=== PATIENT | male | born 1940 ===

== ENCOUNTER 2016-09-12 07:52 | Day surgery (SDC) | payer BC, MEDICARE ==
[2016-02-09 08:55] VITALS: BMI 27.4
[2016-09-12] MEDS ORDERED: Gentamicin 160 MG in Sodium Chloride 0.9% 100 ML IVPB ONE (08:01)
[2016-09-12] MEDS ORDERED: Propofol 10 mg/ml Inj (20 ML) ONE (08:19)
[2016-09-12] MEDS ORDERED: Vancomycin 1 gm/D5W 200 ml 1 GM/200 ML BAG IVPB ONE (08:39)
[2016-09-12] MEDS ORDERED: Lactated Ringer's 1,000 ML IV ONE ×2 (08:45→12:20)
[2016-09-12] MEDS ORDERED: Midazolam 2 MG/2 ML VIAL ONE (08:50)
[2016-09-12] MEDS ORDERED: ePHEDrine 50 mg/ml Inj ONE (09:15)
[2016-09-12] MEDS ORDERED: Phenylephrine 10 mg/ml Inj ONE (09:20)
[2016-09-12] MEDS ORDERED: Bacitracin 500 Units/gm Oint Foilpak UD ONE (09:43)
[2016-09-12] MEDS ORDERED: HYDROmorphone 0.5 mg/0.5 ml ISec IVP PRN (11:36)
[2016-09-12] MEDS ORDERED: Lactated Ringer's 1,000 ML IV SCH (11:45)
[2016-09-12 12:45] LABS: RBC URINE 2 /hpf (0-3); URINE BILIRUBIN NEGATIVE (NEGATIVE); URINE BLOOD NEGATIVE (NEGATIVE); URINE CALCIUM OXALATE CRYSTALS OCC /hpf (<OCC); URINE COLOR Yellow (YELLOW); URINE GLUCOSE (UA) NORMAL (Normal); URINE KETONE NEGATIVE (NEGATIVE); URINE LEUKOCYTE ESTERASE TRACE Leu/uL (Negative); URINE PROTEIN 1+ mg/dL (NEGATIVE); URINE UROBILINOGEN NORMAL mg/dL (0.2-1.0); WBC URINE 4 /hpf (0-5)
[2016-09-12 13:34] VITALS: RESP 13; TEMP 97.2
[2016-09-12 14:53] VITALS: O2SAT 98
[2016-09-12 14:55] VITALS: BP 122/67; PULSE 63
--- NOTE | 2016-09-14 03:01 | OP ---
PROCEDURE DATE: 09/12/2016 PREOPERATIVE DIAGNOSES: Organic erectile dysfunction. Penile prosthesis malfunction. POSTOPERATIVE DIAGNOSES: Organic erectile dysfunction. Penile prosthesis malfunction. PROCEDURE: Removal of inflatable penile prosthesis. Insertion of semirigid penile prosthesis. OPERATING SURGEON: Dr. Maritza Elliott. PROCEDURE FOLLOWS: The patient received perioperative antibiotics. The patient was in the supine position. The abdomen, genitalia, perineum and thighs were prepped and draped in a sterile fashion. A meticulous 10-minute Betadine scrub was performed to the operative site. ChloraPrep skin prep was used. The abdomen and genitalia prepped and draped in sterile fashion. PROCEDURE: A 14-Tanzanian Sanchez catheter was inserted into the bladder. Urine was sent for bacteriolog ic examination. The double ring retractor was used. The skin hooks were used as well. The penis was placed in traction in a cephalad direction using the skin hook at the urethral meatus. A transverse incision approximately 4-5 cm was made at the level of the penoscrotal junction. Incisi on was extended through the skin and subcutaneous tissue. The pump within the scrotum was dissected free by sharp dissection with electrocautery. The pump was then delivered. The pump was noted to be deflated and, upon pumping of the device, it remained deflated. Further pumping, however, revealed pump to stop working. The prosthesis filled well. The prosthesis deflated well. The pump was placed in a new position, dependent position within the scrotum. However, testing of th e pump was again performed and the pump did not function well. The pump was delivered its new pouch. The pump was again tested and did not perform well. There was some intermittent failure of the pump mechanism. REVIEW OF THIS FINDING: Decision was made to proceed with explantation of the old prosthesis, and wi th the implantation of the semirigid penile prosthesis. The tubing from the pump was followed to the penile cylinders. The longitudinal corporotomy was made with electrocautery. The cylinders were removed, first on the right side and then on the left side. The tubing was traced as far proximal for removal toward the right inguinal area, where the reservo ir was in place. The tubing was then divided. The wound was copiously irrigated throughout the procedure with antibiotic solution. The cylinders were sized using the sizer. Total intracorporeal length was 20 cm on each side. The Amparo dilators were used to calibrate the intracorporeal diameter. The dilators passed without d ifficulty to size 13 Tanzanian. The semirigid penile prosthesis was then implanted. The Coloplast Ashley malleable penile prosthesi s was inserted. The prosthesis was trimmed to a length of 20 cm. The posterior cap was applied. The prostate was then inserted. Proper position on each side. There was excellent positioning of th e prostate. Excellent cosmetic result. The wound was again irrigated as it was again and repeatedly irrigated with antibiotic solution. The corporotomy incisions were closed with a continuous suture of water with a continuous 2-0 monofil ament absorbable suture. The wound was irrigated. The subcutaneous tissue was reapproximated with interrupted sutures of 3-0 Dexon. Vertical mattress sutures of 3-0 nylon were placed. A sterile dressing and compressive dressing were applied. The patient tolerated the procedure without complication. Maritza Elliott MD cc: [phone] TT: 09/14/2016 03:00:22 arely
== END 2016-09-12 14:00 | disposition home or self-care (01) ==
LOC: C.SDS 07:52
PROVIDERS: ATTEND Urology
DX: N52.9 Male erectile dysfunction, unspecified (principal); Y83.2 Surgical operation with anastomosis, bypass or graft as the cause of abnormal reaction of the patient, or of later complication, without mention of misadventure at the time of the procedure; Y73.2 Prosthetic and other implants, materials and accessory gastroenterology and urology devices associated with adverse incidents
CPT/HCPCS: 54416; 81001; 87086; 88300; J1170; J1580; J2250; J2370; J3010; J3370; J7120

== ENCOUNTER 2016-09-14 07:00 | Day surgery (SDC) | payer BC, MEDICARE ==
[2016-09-14 07:00] VITALS: BMI 27.4
--- NOTE | 2016-09-14 07:47 | C.PDOC ---
History Of Present Illness 76 y/o male presents to ED with urinary retention since 11:30PM yesterday. Complains of abdominal fullness and pain, took one percocet prior to arrival. On 09/12/16, patient underwent removal of inflatable penile prosthesis. Denies fever, chills, or other associated symptoms. Time Seen by Provider: 09/14/16 07:21 Chief Complaint (Nursing): Male Genitourinary History Per: Patient History/Exam Limitations: no limitations Onset/Duration Of Symptoms: Days Current Symptoms Are (Timing): Still Present Quality Of Discomfort: "Pain" Associated Symptoms: denies: Fever, Chills Recent travel outside of the [place]: No Past Medical History Reviewed: Historical Data, Nursing Documentation, Vital Signs Vital Signs: Last Vital Signs Temp 97.9 F 09/14/16 10:38 Pulse 76 09/14/16 10:38 Resp 18 09/14/16 10:38 BP 168/90 H 09/14/16 10:38 Pulse Ox 98 09/14/16 10:38 - Medical History PMH: HTN Denies: Chronic Kidney Disease Surgical History: Tonsillectomy - [facility] Procedures INS INFLATE PENIS PROSTH (11/19/12) Family History: States: Unknown Family Hx - Social History Hx Alcohol Use: Yes Hx Substance Use: No - Immunization History Hx Tetanus Toxoid Vaccination: No Hx Influenza Vaccination: No Hx Pneumococcal Vaccination: No Review Of Systems Except As Marked, All Systems Reviewed And Found Negative. Constitutional: Negative for: Fever, Chills Respiratory: Negative for: Cough Gastrointestinal: Positive for: Abdominal Pain. Negative for: Nausea, Vomiting Skin: Negative for: Rash Physical Exam - Physical Exam Appears: Non-toxic, No Acute Distress Skin: Normal Color, Warm, Dry Head: Atraumatic, Normacephalic Oral Mucosa: Moist Chest: Symmetrical Cardiovascular: Rhythm Regular Respiratory: Normal Breath Sounds, No Rales, No Rhonchi, No Wheezing Gastrointestinal/Abdominal: Soft, Tenderness, Distention, No Guarding, No Rebound, Other (suprapubic region firm, distended and tender) Back: Normal Inspection Male Genital: Other (sutures intact to groin and appropriately tender, no erythema swelling or discharge) Extremity: Normal ROM, Capillary Refill (< 2 sec. ) Neurological/Psych: Oriented x3, Normal Speech, Normal Cognition ED Course And Treatment - Laboratory Results Result Diagrams: 09/14/16 08:51 09/14/16 08:51 O2 Sat by Pulse Oximetry: 97 (RA) Pulse Ox Interpretation: Normal Medical Decision Making Medical Decision Making: Impression: urinary retention Progress: Bladder scan shows over 999mL. Page Dr Elliott 0746 Dr Elliott states he will come to ED 0748 Dr Elliott arrives to ED 0802 Dr Elliott requests labs and patient will go to OR for SDS Disposition - Disposition Disposition: HOSPITALIZED Disposition Time: 08:42 Condition: STABLE - POA Present On Arrival: None - Clinical Impression Clinical Impression: Postoperative urinary retention - PA / COMMUNITY AMBASSADOR / Resident Statement MD/DO has reviewed & agrees with the documentation as recorded. - Scribe Statement The provider has reviewed the documentation as recorded by the Scribe Brady Norton All medical record entries made by the Chilangoibhebert were at my direction and personally dictated by me. I have reviewed the chart and agree that the record accurately reflects my personal performance of the history, physical exam, medical decision making, and the department course for this patient. I have also personally directed, reviewed, and agree with the discharge instructions and disposition. Decision To Admit - Pt Status Changed To: Hospital Disposition Of: SDS- Endo,OR,Cath,IR - Admit Certification Admit to Inpatient:: Patient s.p procedure by Dr Elliott, comes in with acute urinary retention. Patient for OR with Dr Elliott - . Bed Request Type: Same Day Surgery Admitting Physician: Maritza Elliott Patient Diagnosis: Postoperative urinary retention
[2016-09-14 09:03] LABS: HEMATOCRIT 38.3 % (35.0-51.0); MEAN CELL VOLUME 84.2 fL (80.0-94.0); MEAN CORPUSCULAR HEMOGLOBIN 27.9 pg (27.0-31.0); MEAN CORPUSCULAR HGB CONC 33.1 g/dL (33.0-37.0); MEAN PLATELET VOLUME 9.1 fL (7.2-11.7); WHITE BLOOD COUNT 8.9 K/uL (4.8-10.8)
[2016-09-14 09:17] LABS: INR 1.1
[2016-09-14 09:21] LABS: CHLORIDE 101 mmol/L (98-107); POTASSIUM 4.1 mmol/L (3.6-5.2); SODIUM 136 mmol/L (132-148)
[2016-09-14 09:23] LABS: BILIRUBIN,TOTAL 0.8 mg/dL (0.2-1.3); CARBON DIOXIDE 23 mmol/L (22-30); GFR AFRICAN-AMERICAN > 60
[2016-09-14 09:24] LABS: ALB/GLOB RATIO 1.6 (1.0-2.1); ALKALINE PHOSPHATASE 80 U/L (38-126); ALT/SGPT 27 U/L (21-72); AST/SGOT 30 U/L (17-59); BLOOD UREA NITROGEN 17 mg/dL (9-20); CALCIUM 8.6 mg/dl (8.6-10.4); GLUCOSE,RANDOM 98 mg/dL (75-110); TOTAL PROTEIN 7.1 g/dL (6.3-8.3)
[2016-09-14] MEDS ORDERED: Sodium Chloride 0.9% 1,000 ML IV ONE (10:02)
[2016-09-14] MEDS ORDERED: Sodium Citrate/Citric Acid 15 ml Sol ONE (11:03)
[2016-09-14] MEDS ORDERED: Propofol 10 mg/ml Inj (20 ML) ONE (11:08)
[2016-09-14] MEDS: cefTRIAXone IV 1 gm in Dextros 50 ML IVPB ONE ×3 (11:10→11:28)
[2016-09-14] MEDS ORDERED: Iohexol 240 (50 ml) ONE (11:15)
[2016-09-14] MEDS: Gentamicin 80 mg in 0.9% NS 160 MG/200 ML BAG IVPB ONE ×3 (11:15→11:34)
[2016-09-14] MEDS ORDERED: HYDROmorphone 0.5 mg/0.5 ml ISec IVP PRN (11:56)
[2016-09-14] MEDS ORDERED: Lactated Ringer's 1,000 ML IV SCH (12:00)
--- NOTE | 2016-09-14 12:07 | PCM.SURG1 ---
Surgeon's Initial Post Op Note - Surgeon's Notes Surgeon: Mendez MENDOZA Market Development Executive: NONE Type of Anesthesia: General Endo Pre-Operative Diagnosis: URINARY RETENTION Operative Findings: SAME Post-Operative Diagnosis: SAME. BPH STRICTURE Operation Performed: CYSTOSCOPY, URETHRAL CATHETERIZATION. CYSTOGRAM Specimen/Specimens Removed: URINE Estimated Blood Loss: EBL {In ML}: 5 Blood Products Given: N/A Post-Op Condition: Good Date of Surgery/Procedure: 09/14/16 Time of Surgery/Procedure: 12:07
[2016-09-14] MEDS ORDERED: Lactated Ringer's 500 ML IV ONE (13:00)
[2016-09-14 13:33] VITALS: O2SAT 100
[2016-09-14 13:40] VITALS: BP 128/63; PULSE 77; RESP 18; TEMP 97.7
--- NOTE | 2016-09-14 16:07 | RAD ---
PROCEDURE: Intraoperative Fluoroscopy. HISTORY: Urinary retention FINDINGS: Fluoroscopic assistance was provided. Fluoroscopy time and radiation dose not included on this exam. Please refer to the operative report for additional details.
--- NOTE | 2016-09-15 17:26 | RAD ---
HISTORY: URINARY RETENTION COMPARISON: No prior. FINDINGS: BOWEL: No obstruction. No free air. Right upper quadrant gallstones BONES: Generalized osteopenia. Lumbosacral osteoarthrosis OTHER FINDINGS: Bilateral hemipelvic phleboliths right greater than left. Soft tissue fullness in the midline of the pelvis consistent with with bladder distention. IMPRESSION: Findings as above
--- NOTE | 2016-09-20 13:44 | OP ---
PROCEDURE DATE: 09/14/2016 PREOPERATIVE DIAGNOSIS: Urinary retention. POSTOPERATIVE DIAGNOSES: Urinary retention. Urethral stricture. Prostatic enlargement. PROCEDURE: Cystoscopy. Urethral dilation and catheterization. Cystogram. DESCRIPTION OF PROCEDURE: The patient was placed in lithotomy position. Genitalia were prepped and draped sterilely. Anesthesia was provided by the anesthesiologist. Perioperative antibiotics were a dministered. A 20-Guyanese cystoscope sheath was introduced under direct vision. The urethra was inspected. There were noted to be multiple mucosal false passages. There was mild bleeding from the prostatic urethra . The guidewire was advanced under cystoscopic control into the bladder. The cystoscope was advanced o chacha the guidewire. There was noted to be prostatic hypertrophy. The prostatic urethra was 4 cm in length and occlusive. The bladder was drained. The cystoscope and sheath were removed. The 16-Guyanese Councill catheter wa s inserted over the guidewire. Cystogram was performed under fluoroscopic control with insufflation of iodinated contrast instilled via the Sanchez catheter. The catheter was in good position. The Sanchez catheter was left in place. The bladder was then drained. The patient was returned to the supine position. The patient tolerated the procedure without complication. Maritza Elliott MD cc: [phone] TT: 09/20/2016 13:43:33 wy
== END 2016-09-14 13:41 | disposition home or self-care (01) ==
LOC: C.ER 07:00 → C.SDS 07:00
PROVIDERS: ATTEND Urology
DX: N40.0 Benign prostatic hyperplasia without lower urinary tract symptoms (principal); R33.9 Retention of urine, unspecified; N35.8 Other urethral stricture
CPT/HCPCS: 52282; 74000; 76000; 80053; 85027; 85610; 87086; 96374; 96376; 99285; C1769; J0696; J1580; J2270; J7120; Q9966

== ENCOUNTER 2016-09-20 07:36 | Day surgery (SDC) | payer BC, MEDICARE ==
[2016-09-20 07:36] VITALS: BMI 27.4
[2016-09-20 07:49] VITALS: RESP 14; TEMP 98.2; O2SAT 97
--- NOTE | 2016-09-20 07:59 | C.PDOC ---
History Of Present Illness 76-year-old male, presents to the emergency department with complaints of urinary retention s/p penile surgery on 09/12. Patient seen in ED last week for same complaint and had urinary catheter placed in OR, that was removed yesterday. Patient states the symptoms returned and also has hematuria. Patient denies any nausea/vomiting, fevers or chills. Urologist Maritza Tamayo MD. Time Seen by Provider: 09/20/16 07:49 Chief Complaint (Nursing): Male Genitourinary History Per: Patient History/Exam Limitations: no limitations Onset/Duration Of Symptoms: Days Current Symptoms Are (Timing): Still Present Severity: Moderate Past Medical History Reviewed: Historical Data, Nursing Documentation, Vital Signs Vital Signs: Last Vital Signs Temp 98.2 F 09/20/16 07:43 Pulse 61 09/20/16 07:43 Resp 14 09/20/16 07:43 BP 114/72 09/20/16 07:43 Pulse Ox 97 09/20/16 09:49 - Medical History PMH: HTN Denies: Chronic Kidney Disease Surgical History: Tonsillectomy - [facility] Procedures INS INFLATE PENIS PROSTH (11/19/12) Family History: States: No Known Family Hx - Social History Hx Alcohol Use: Yes Hx Substance Use: No - Immunization History Hx Tetanus Toxoid Vaccination: No Hx Influenza Vaccination: No Hx Pneumococcal Vaccination: No Review Of Systems Except As Marked, All Systems Reviewed And Found Negative. Constitutional: Negative for: Fever, Chills Cardiovascular: Negative for: Chest Pain, Palpitations Respiratory: Negative for: Cough Gastrointestinal: Negative for: Nausea, Vomiting Genitourinary: Positive for: Hematuria ((+)retention). Negative for: Dysuria Neurological: Negative for: Weakness, Numbness Physical Exam - Physical Exam Appears: Non-toxic, No Acute Distress Skin: Warm, Dry, No Rash Head: Atraumatic, Normacephalic Eye(s): bilateral: Normal Inspection Nose: Normal Oral Mucosa: Moist Lips: Normal Appearing Neck: Normal ROM Cardiovascular: Rhythm Regular, No Murmur Respiratory: Normal Breath Sounds, No Accessory Muscle Use Gastrointestinal/Abdominal: Soft, No Tenderness, No Distention, No Guarding Male Genital: No Scrotal Swelling, Other (semi-rigid penis, blood to urethra, well healing suture wound to scrotum) Extremity: Normal ROM Neurological/Psych: Oriented x3, Normal Speech ED Course And Treatment - Laboratory Results Result Diagrams: 09/20/16 08:31 09/20/16 08:31 Lab Interpretation: No Acute Changes O2 Sat by Pulse Oximetry: 97 Medical Decision Making Medical Decision Making: Impression: 76y/o M comes in w/ complaints if urinary retention, s.p surgery by Dr Mendez Elliott 09/12/16 Plan: * CMP * CBC, PTT/PT * Urine Culture/Urinalysis * Bladder Scan Progress and Disposition: Dr Mendez Elliott calls ED with orders for bloodwork, keep NPO and admit to SDS Disposition - Disposition Disposition: HOSPITALIZED Disposition Time: 08:15 Condition: STABLE - Clinical Impression Clinical Impression: Postoperative urinary retention, Hematuria - Scribe Statement The provider has reviewed the documentation as recorded by the Scribe (Daniel Rehman) All medical record entries made by the Scribe were at my direction and personally dictated by me. I have reviewed the chart and agree that the record accurately reflects my personal performance of the history, physical exam, medical decision making, and the department course for this patient. I have also personally directed, reviewed, and agree with the discharge instructions and disposition. Decision To Admit - Pt Status Changed To: Hospital Disposition Of: [facility]- Endo,OR,Cath,IR - . Bed Request Type: Same Day Surgery Admitting Physician: Maritza Elliott Patient Diagnosis: Postoperative urinary retention, Hematuria
[2016-09-20 08:35] LABS: BASO % 0.4 % (0.0-2.0); EOS # 0.1 K/uL (0.0-0.7); EOS % 1.6 % (0.0-4.0); HEMATOCRIT 37.7 % (35.0-51.0); LYMPH # 1.3 K/uL (1.0-4.3); LYMPH % 14.1 % (20.0-40.0); MEAN CELL VOLUME 83.9 fL (80.0-94.0); MEAN CORPUSCULAR HEMOGLOBIN 27.7 pg (27.0-31.0); MEAN CORPUSCULAR HGB CONC 33.1 g/dL (33.0-37.0); MEAN PLATELET VOLUME 8.8 fL (7.2-11.7); MONO # 0.6 K/uL (0.0-0.8); RED CELL DISTRIBUTION WIDTH 15.7 % (11.5-14.5); WHITE BLOOD COUNT 9.2 K/uL (4.8-10.8)
[2016-09-20 08:45] LABS: RBC URINE 3502 /hpf (0-3); URINE BILIRUBIN NEGATIVE (NEGATIVE); URINE BLOOD 2+ (NEGATIVE); URINE GLUCOSE (UA) NORMAL (Normal); URINE KETONE TRACE mg/dL (NEGATIVE); URINE LEUKOCYTE ESTERASE NEG Leu/uL (Negative); URINE PROTEIN 2+ mg/dL (NEGATIVE); URINE UROBILINOGEN NORMAL mg/dL (0.2-1.0)
[2016-09-20 08:46] LABS: URINE COLOR RED (YELLOW)
[2016-09-20 08:52] LABS: CHLORIDE 99 mmol/L (98-107)
[2016-09-20 08:53] LABS: SODIUM 134 mmol/L (132-148)
[2016-09-20 08:55] LABS: ALB/GLOB RATIO 1.6 (1.0-2.1); ALKALINE PHOSPHATASE 88 U/L (38-126); ALT/SGPT 30 U/L (21-72); AST/SGOT 33 U/L (17-59); BILIRUBIN,TOTAL 0.6 mg/dL (0.2-1.3); BLOOD UREA NITROGEN 17 mg/dL (9-20); CARBON DIOXIDE 24 mmol/L (22-30); GFR AFRICAN-AMERICAN > 60; TOTAL PROTEIN 7.1 g/dL (6.3-8.3)
[2016-09-20 08:56] LABS: CALCIUM 8.5 mg/dl (8.6-10.4); GLUCOSE,RANDOM 103 mg/dL (75-110)
[2016-09-20] MEDS ORDERED: Iohexol 240 (50 ml) ONE (09:17)
[2016-09-20] MEDS ORDERED: Lidocaine 2% Jelly (Uro-Jet) ONE (09:17)
[2016-09-20] MEDS ORDERED: cefTRIAXone IV 1 gm in Dextros 0 ML IVPB ONE (09:17)
--- NOTE | 2016-09-20 09:52 | PCM.SURG1 ---
Surgeon's Initial Post Op Note - Surgeon's Notes Surgeon: winnie brock Lab Clerk: none Type of Anesthesia: Local Pre-Operative Diagnosis: urinary retention Operative Findings: same Post-Operative Diagnosis: same Operation Performed: urethral catheter insertion Specimen/Specimens Removed: urine Estimated Blood Loss: EBL {In ML}: 0 Blood Products Given: N/A Post-Op Condition: Good Date of Surgery/Procedure: 09/20/16 Time of Surgery/Procedure: 09:51
[2016-09-20 10:29] VITALS: BP 115/73; PULSE 68
--- NOTE | 2016-09-20 16:26 | RAD ---
HISTORY: URINARY RETENTION COMPARISON: 09/14/2016 FINDINGS: BOWEL: Bowel gas pattern is unremarkable. Stable gallstones are seen in the right upper quadrant. Stable calcifications are seen in the pelvis. No definite new calcification overlying the expected region of the kidneys is seen. BONES: Unchanged OTHER FINDINGS: None. IMPRESSION: Stable gallstones in the right upper quadrant. No new renal or pelvic pelvic calcification although persistent probable phleboliths in the pelvis remain.
--- NOTE | 2016-09-21 07:15 | OP ---
PROCEDURE DATE: 09/20/2016 DATE OF PROCEDURE: 09/20/2016 PREOPERATIVE DIAGNOSES: Urinary retention. Hematuria. POSTOPERATIVE DIAGNOSES: Urinary retention. Hematuria. PROCEDURE: Urethral catheterization. DESCRIPTION OF PROCEDURE: The patient was in the supine position. Genitalia prepped and draped ster ilely. A 14-South Korean Sanchez catheter was inserted per urethra. The catheter was able to be advanced to the angel dder. There was some tightness upon advancing the catheter consistent with a history of possible ure thral stricture as well as prostatic enlargement. The catheter was able to be advanced to the hilt into the bladder. The balloon was distended. Supercalender Operator Helper film of the abdomen revealed the distended bladder. The catheter was left in place. The urine was sent for bacteriologic examination. There was noted t o be hematuria via the Sanchez catheter. The patient tolerated the procedure without complication. The penoscrotal wound was inspected and cleansed. The wound was clean and healing well. Maritza Elliott MD cc: [phone] TT: 09/21/2016 07:14:50 tn
== END 2016-09-20 10:10 | disposition home or self-care (01) ==
LOC: C.ER 07:36 → C.SDS 08:38
PROVIDERS: ATTEND Urology
DX: R33.9 Retention of urine, unspecified (principal); R31.0 Gross hematuria

== ENCOUNTER 2016-10-09 07:29 | Emergency (ER) | payer BC, MEDICARE ==
[2016-10-09 07:30] VITALS: BMI 27.4
[2016-10-09 07:39] VITALS: RESP 16
--- NOTE | 2016-10-09 09:24 | C.PDOC ---
History Of Present Illness Patient is a 76 y/o male, s/p inflatable penile prosthesis implanted last month , presents to the ED requesting refill of his Percocet. Patient complains of penile soreness, and mild penile inflammation. Notes pt was prescribed percocet with relief but but ran out. No other symptoms. Otherwise, denies any dysuria, hematuria, discharge, redness, fever, or any other associated symptoms at this time. Denies urinary retention. Time Seen by Provider: 10/09/16 07:49 Chief Complaint (Nursing): Med Refill History Per: Patient History/Exam Limitations: no limitations Onset/Duration Of Symptoms: Days Current Symptoms Are (Timing): Still Present Recent travel outside of the [place]: No Additional History Per: Patient Past Medical History Reviewed: Historical Data, Nursing Documentation, Vital Signs Vital Signs: Last Vital Signs Temp 98.2 F 10/09/16 09:30 Pulse 80 10/09/16 09:30 Resp 16 10/09/16 09:30 BP 122/70 10/09/16 09:30 Pulse Ox 99 10/09/16 10:06 - Medical History PMH: HTN Denies: Chronic Kidney Disease Surgical History: Tonsillectomy - [facility] Procedures INS INFLATE PENIS PROSTH (11/19/12) Family History: States: Unknown Family Hx - Social History Hx Alcohol Use: Yes Hx Substance Use: No - Immunization History Hx Tetanus Toxoid Vaccination: No Hx Influenza Vaccination: No Hx Pneumococcal Vaccination: No Review Of Systems Except As Marked, All Systems Reviewed And Found Negative. Constitutional: Negative for: Fever, Chills Gastrointestinal: Negative for: Nausea, Vomiting, Abdominal Pain Genitourinary: Positive for: Penile Pain. Negative for: Dysuria, Frequency, Incontinence, Hematuria, Penile Discharge, Scrotal Pain, Rash Skin: Negative for: Rash Physical Exam - Physical Exam Appears: Non-toxic, No Acute Distress Skin: Normal Color, Warm, Dry Head: Atraumatic, Normacephalic Eye(s): bilateral: Normal Inspection, EOMI Nose: Normal Neck: Normal ROM, Supple Chest: Symmetrical Respiratory: No Accessory Muscle Use Gastrointestinal/Abdominal: Soft, No Tenderness Male Genital: No Testicular Tenderness, No Testicular Swelling, Circumcised, Other (no tenderness, erythema, or discharge from penis; erect penis) Extremity: Normal ROM Neurological/Psych: Oriented x3, Normal Speech ED Course And Treatment O2 Sat by Pulse Oximetry: 99 (on RA) Pulse Ox Interpretation: Normal Progress Note: Patient was given Percocet in the ER. Spoke with Dr. Maritza Elliott over phone who agrees to refill of Percocet, and states he will follow up with patient in the office for further evaluation. No need for further anaylsis including UA. Disposition - Disposition Referrals: Maritza Elliott MD [Staff Provider] - Disposition: HOME/ ROUTINE Disposition Time: 09:22 Condition: STABLE Additional Instructions: Follow up with your primary medical doctor or clinic in 2-5 days for further evaluation. Take medications as prescribed. Return to the emergency department at any time if symptoms persist or worsen. Prescriptions: oxyCODONE/Acetaminophen [Percocet 5/325 mg Tab] 1 tab PO QID PRN #20 tab PRN Reason: Pain Instructions: Penile Prosthesis (GEN) Print Language: TURKMEN - Clinical Impression Clinical Impression: Penile pain - PA / ASSISTANT PROFESSOR / Resident Statement MD/DO has reviewed & agrees with the documentation as recorded. - Scribe Statement The provider has reviewed the documentation as recorded by the Scribhebert Abreu All medical record entries made by the Chilangoibhebert were at my direction and personally dictated by me. I have reviewed the chart and agree that the record accurately reflects my personal performance of the history, physical exam, medical decision making, and the department course for this patient. I have also personally directed, reviewed, and agree with the discharge instructions and disposition.
[2016-10-09] MEDS ORDERED: Oxycodone/Acetaminophen 5/325 mg Tab PO STA (09:27)
[2016-10-09] MEDS ORDERED: Oxycodone/Acetaminophen 5/325 mg Tab ONE (09:29)
[2016-10-09 09:32] VITALS: BP 122/70; PULSE 80; TEMP 98.2
[2016-10-09 09:53] VITALS: O2SAT 99
== END 2016-10-09 09:30 | disposition home or self-care (01) ==
LOC: C.ER 07:29
DX: N48.89 Other specified disorders of penis (principal)

== ENCOUNTER 2016-10-10 17:45 | Inpatient (IN) | payer BC, MEDICARE ==
[2016-10-10 17:56] VITALS: BMI 28.2
--- NOTE | 2016-10-10 18:02 | C.PDOC ---
History Of Present Illness 76 year old male who presents to the ER for medical clearance for emergent OR surgery due to penile pain cause by his penile implant. Denies back pain, abdominal pain, or hematuria. Time Seen by Provider: 10/10/16 18:01 Chief Complaint (Nursing): Male Genitourinary History Per: Patient History/Exam Limitations: no limitations Onset/Duration Of Symptoms: Hrs Current Symptoms Are (Timing): Still Present Quality Of Discomfort: Unable To Describe Associated Symptoms: denies: Back Pain, Urinary Symptoms Alleviating Factors: None Recent travel outside of the [place]: No Past Medical History Reviewed: Historical Data, Nursing Documentation, Vital Signs Vital Signs: Last Vital Signs Temp 98.2 F 10/12/16 16:00 Pulse 62 10/12/16 16:00 Resp 18 10/12/16 16:00 BP 120/61 10/12/16 16:00 Pulse Ox 97 10/12/16 08:23 - Medical History PMH: HTN Surgical History: Tonsillectomy - [facility] Procedures INS INFLATE PENIS PROSTH (11/19/12) Family History: States: Unknown Family Hx - Social History Hx Alcohol Use: No Hx Substance Use: No - Immunization History Hx Tetanus Toxoid Vaccination: No Hx Influenza Vaccination: Yes (2016) Hx Pneumococcal Vaccination: No Review Of Systems Except As Marked, All Systems Reviewed And Found Negative. Constitutional: Negative for: Fever, Chills Cardiovascular: Negative for: Chest Pain Respiratory: Negative for: Shortness of Breath Gastrointestinal: Negative for: Nausea, Vomiting, Abdominal Pain Genitourinary: Positive for: Penile Pain. Negative for: Hematuria Neurological: Negative for: Weakness, Numbness Physical Exam - Physical Exam Appears: Non-toxic Skin: Normal Color, Warm, Dry Head: Atraumatic, Normacephalic Oral Mucosa: Moist Chest: Symmetrical, No Tenderness Cardiovascular: Rhythm Regular, No Murmur Respiratory: Normal Breath Sounds, No Rales, No Rhonchi, No Wheezing Gastrointestinal/Abdominal: Soft, No Tenderness Male Genital: Other (Penile implant protruding out of distal aspect of penis) Neurological/Psych: Oriented x3, Normal Speech, Normal Cognition ED Course And Treatment - Laboratory Results Result Diagrams: 10/12/16 06:06 10/12/16 06:06 O2 Sat by Pulse Oximetry: 98 (Room air) Pulse Ox Interpretation: Normal Medical Decision Making Medical Decision Making: EKG and blood work ordered. Morphine and IV fluids administered. pt taken to OR by Dr Elliott Disposition - Disposition Disposition: HOSPITALIZED Disposition Time: 18:33 Condition: STABLE - Clinical Impression Clinical Impression: Complication of implanted penile prosthesis - Scribe Statement The provider has reviewed the documentation as recorded by the Scribe Agus Chavira All medical record entries made by the Scribe were at my direction and personally dictated by me. I have reviewed the chart and agree that the record accurately reflects my personal performance of the history, physical exam, medical decision making, and the department course for this patient. I have also personally directed, reviewed, and agree with the discharge instructions and disposition.
[2016-10-10] MEDS ORDERED: Bacitracin 500 Units/gm Oint Foilpak UD ONE ×2 (18:14→18:33)
[2016-10-10] MEDS ORDERED: Bacitracin 50,000 UNIT in Sodium Chloride 0.9% Irrig 1,000 ML IR SCH (18:29)
[2016-10-10 18:33] LABS: BASO # 0.1 K/uL (0.0-0.2); EOS # 0.1 K/uL (0.0-0.7); HEMOGLOBIN 11.7 g/dL (12.0-18.0); LYMPH # 1.6 K/uL (1.0-4.3)
[2016-10-10] MEDS ORDERED: Sodium Chloride 0.9% 1,000 ML ONE (18:33)
[2016-10-10] MEDS: Sodium Chloride 0.9% 1,000 ML IV SCH (18:34)
[2016-10-10 18:37] LABS: BASO % 0.5 % (0.0-2.0); LYMPH % 12.2 % (20.0-40.0); MEAN CELL VOLUME 84.1 fL (80.0-94.0); MEAN CORPUSCULAR HEMOGLOBIN 27.2 pg (27.0-31.0); MEAN CORPUSCULAR HGB CONC 32.4 g/dL (33.0-37.0); MONO # 0.9 K/uL (0.0-0.8); MONO % 7.2 % (0.0-10.0); NEUT # 10.4 K/uL (1.8-7.0); NEUT % 79.1 % (50.0-75.0); RBC 4.3 Mil/uL (4.40-5.90); RED CELL DISTRIBUTION WIDTH 15.5 % (11.5-14.5); WHITE BLOOD COUNT 13.1 K/uL (4.8-10.8)
[2016-10-10 18:42] LABS: ALBUMIN 3.8 g/dL (3.5-5.0)
[2016-10-10 18:44] LABS: GFR AFRICAN-AMERICAN > 60; GFR NON-AFRICAN AMERICAN > 60
[2016-10-10 18:45] LABS: ALT/SGPT 33 U/L (21-72); AST/SGOT 29 U/L (17-59); BLOOD UREA NITROGEN 24 mg/dL (9-20); CALCIUM 9.2 mg/dl (8.6-10.4)
[2016-10-10] MEDS ORDERED: Propofol 10 mg/ml Inj (20 ML) ONE ×2 (18:56→19:38)
[2016-10-10] MEDS ORDERED: Midazolam 2 MG/2 ML VIAL ONE (18:56)
[2016-10-10] MEDS ORDERED: cefTRIAXone IV 1 gm in Dextros 50 ML IVPB ONE (18:56)
[2016-10-10] MEDS: Lactated Ringer's 1,000 ML IV ONE ×2 (19:00→19:49)
[2016-10-10] MEDS ORDERED: HYDROmorphone 0.5 mg/0.5 ml ISec IVP PRN (19:49)
--- NOTE | 2016-10-10 19:54 | PCM.SURG1 ---
Surgeon's Initial Post Op Note - Surgeon's Notes Surgeon: winnie brock Family Practice Physician Assistant: randal almeida Type of Anesthesia: General LMA Pre-Operative Diagnosis: erosion of penile prosthesis Operative Findings: same Post-Operative Diagnosis: same Operation Performed: removal of penile prosthesis, from L corpora cavernosum. Irrigation of corpora cavernosum Specimen/Specimens Removed: penile prosthesis. urine. drainage from L corpora cavernosum Estimated Blood Loss: EBL {In ML}: 0 Blood Products Given: N/A Drains Used: Wilson Hernandez Post-Op Condition: Good Date of Surgery/Procedure: 10/10/16 Time of Surgery/Procedure: 19:45
[2016-10-10] MEDS: Ciprofloxacin 400mg/200ml D5W 400 MG/200 ML BAG IVPB SCH (20:28)
[2016-10-11] MEDS: Sodium Chloride 0.9% 1,000 ML IV SCH ×2 (00:28→04:27)
[2016-10-11] MEDS: Oxycodone/Acetaminophen 5/325 mg Tab PO PRN ×5 (03:25→23:43)
[2016-10-11] MEDS: Ciprofloxacin 400mg/200ml D5W 400 MG/200 ML BAG IVPB SCH ×2 (08:37→19:00)
--- NOTE | 2016-10-11 10:26 | PCM.URO ---
Urology Progress Note - General General: Tolerating Diet - Subjective Abdominal Pain: No Flank Pain: No Nausea: No Vomiting: No Voiding Well: No (catheter in place) Dysuria: No Hematuria: No Chest Pain: No Fever & Chills: No Other: pt feels much better - Objective Intake & Output: Intake & Output 10/10/16 10/11/16 10/11/16 18:59 06:59 18:59 Intake Total 1040 Output Total 1150 400 Balance -110 -400 Intake: Intake, IV Amount 800 Right Antecubital 800 Oral 240 Output: Urine 1150 400 Urethral (Sanchez) 1000 400 Other: Voiding Method Indwelling Catheter Vital Signs: Vital Signs - 24 hr 10/10/16 10/10/16 10/10/16 19:49 20:00 20:15 Temperature 98.2 F Pulse Rate 75 73 72 Respiratory 12 9 L 10 L Rate Blood Pressure 123/69 134/74 146/76 O2 Sat by Pulse 99 99 99 Oximetry 10/10/16 10/10/16 10/10/16 20:30 20:45 21:00 Temperature 98.8 F Pulse Rate 74 87 72 Respiratory 11 L 15 8 L Rate Blood Pressure 145/75 154/80 H 139/68 O2 Sat by Pulse 99 97 96 Oximetry 10/10/16 10/11/16 10/11/16 21:33 00:03 04:00 Temperature 98.2 F 97.0 F L 98.8 F Pulse Rate 76 73 73 Respiratory 20 20 20 Rate Blood Pressure 117/67 119/65 120/63 O2 Sat by Pulse 98 96 96 Oximetry 10/11/16 07:00 Temperature 98.4 F Pulse Rate 82 Respiratory 20 Rate Blood Pressure 131/75 O2 Sat by Pulse 97 Oximetry - Physical Exam Abdominal Exam: Soft, Non-Tender, Non-Distended Bowel Sounds: Normal Wound: Clean Dressing: Dry Back: No CVA Tenderness Genitalia: Without Inflammation (slight edema) Urinary Catheter Draining Well: Yes Extremities: Normal: Bilateral - Male Phallus: Normal, Uncircumcised Scrotum: Normal Testes: Normal: Bilateral - Plan Advance Diet: Yes Wound Care: Yes Catheter Care: Yes See Orders: Yes Additional Information: Discussed w pt and family re finding, treatment, and prognosis. Reason for leaving R cylinder in place is to preserve possible sexual function, although there is risk of subsequent infection and erosion/ extrusion of this cylinder. For now, pt is improved clinically. - Date & Time of Note Date: 10/11/16 Time: 10:26
[2016-10-12 06:43] LABS: BASO % 0.4 % (0.0-2.0); EOS # 0.2 K/uL (0.0-0.7); EOS % 1.9 % (0.0-4.0); LYMPH # 1.5 K/uL (1.0-4.3); LYMPH % 12.3 % (20.0-40.0); MEAN CELL VOLUME 84.5 fL (80.0-94.0); MEAN CORPUSCULAR HGB CONC 33.1 g/dL (33.0-37.0); MEAN PLATELET VOLUME 8.1 fL (7.2-11.7); MONO # 0.8 K/uL (0.0-0.8); MONO % 6.1 % (0.0-10.0); NEUT # 9.9 K/uL (1.8-7.0); NEUT % 79.3 % (50.0-75.0); RBC 4.29 Mil/uL (4.40-5.90); RED CELL DISTRIBUTION WIDTH 15.3 % (11.5-14.5); WHITE BLOOD COUNT 12.5 K/uL (4.8-10.8)
[2016-10-12 06:52] LABS: ALBUMIN 3.5 g/dL (3.5-5.0)
[2016-10-12 06:54] LABS: AST/SGOT 33 U/L (17-59); GFR AFRICAN-AMERICAN > 60; GFR NON-AFRICAN AMERICAN > 60
[2016-10-12 06:55] LABS: ALT/SGPT 29 U/L (21-72); BLOOD UREA NITROGEN 14 mg/dL (9-20); CALCIUM 8.8 mg/dl (8.6-10.4)
[2016-10-12] MEDS: Oxycodone/Acetaminophen 5/325 mg Tab PO PRN ×2 (08:31→14:34)
[2016-10-12] MEDS: Ciprofloxacin 400mg/200ml D5W 400 MG/200 ML BAG IVPB SCH (08:33)
--- NOTE | 2016-10-12 09:39 | CT ---
PROCEDURE: CT Abdomen and Pelvis without intravenous contrast HISTORY: buttock pain and side pain COMPARISON: Abdomen pelvis CT 08/25/2015 TECHNIQUE: Technique. Contrast Dose: 0 cm Radiation dose: Total exam DLP = 1216 mGy-cm. This CT exam was performed using one or more of the following dose reduction techniques: Automated exposure control, adjustment of the mA and/or kV according to patient size, and/or use of iterative reconstruction technique. FINDINGS: LOWER THORAX: Unremarkable. LIVER: Unremarkable. No gross lesion or ductal dilatation. GALLBLADDER AND BILE DUCTS: Cholelithiasis is again identified with the gallbladder nevertheless appearing stable. . PANCREAS: Unremarkable. No gross lesion or ductal dilatation. SPLEEN: Unremarkable. ADRENALS: Unremarkable. No mass. KIDNEYS AND URETERS: The tiny lucency is likely stable at the upper pole right kidney, poorly characterized given lack of intravenous contrast. The left kidney appears diffusely unremarkable. VASCULATURE: Unremarkable. No aortic aneurysm. BOWEL: Moderate fecal loading is seen throughout the large bowel. No obstruction. No gross mural thickening. APPENDIX: Unremarkable. Normal appendix. PERITONEUM: Unremarkable. No free fluid. No free air. LYMPH NODES: Unremarkable. No enlarged lymph nodes. BLADDER: A Sanchez catheter is identified placed terminating in the urinary bladder with trace gas identified in the nondependent bladder. REPRODUCTIVE: Stable prostate gland enlargement is appreciated with central calcifications once again. Patient is again seen to be status post penile implantation with two reservoirs seen, with one at each side of the urinary bladder, both decompressed. 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 A small fat containing umbilical hernia is again appreciated which is stable with minimal bilateral inguinal hernia is again identified containing only fat. . IMPRESSION: No ascites, abscess or free intraperitoneal gas identified. No bowel obstruction. Prior penile implantation again evident with lower pelvic reservoirs appreciated decompressed. Enlarged prostate gland again evident. Sanchez catheter terminates in the right bladder Tiny right renal cyst again seen though limited due to lack of intravenous contrast agent.
--- NOTE | 2016-10-12 13:48 | CARD ---
APPROVED REPORT EKG Measurement Heart [id number] <Conclusion> Normal sinus rhythm Normal ECG
[2016-10-12 16:23] VITALS: BP 120/61; PULSE 62; RESP 18; TEMP 98.2
--- NOTE | 2016-10-12 17:40 | PCM.URO ---
Urology Progress Note - General General: No Complaints, Tolerating Diet - Subjective Abdominal Pain: No Flank Pain: No Nausea: No Vomiting: No Voiding Well: No (catheter in place) Hematuria: No Dsypnea: No Chest Pain: No Fever & Chills: No - Objective Lab Studies: Reviewed Lab Results Last 24 Hours: Laboratory Results - last 24 hr 10/12/16 10/12/16 06:06 06:06 WBC 12.5 H RBC 4.29 L Hgb 12.0 Hct 36.3 MCV 84.5 MCH 28.0 MCHC 33.1 RDW 15.3 H Plt Count 258 MPV 8.1 Neut % (Auto) 79.3 H Lymph % (Auto) 12.3 L [place] % (Auto) 6.1 Eos % (Auto) 1.9 Baso % (Auto) 0.4 Neut # 9.9 H Lymph # 1.5 Republic # 0.8 Eos # 0.2 Baso # 0.0 Sodium 136 Potassium 4.0 Chloride 100 Carbon Dioxide 24 Anion Gap 16 BUN 14 Creatinine 0.7 L Est GFR ( Amer) > 60 Est GFR (Non-Af Amer) > 60 Random Glucose 106 Calcium 8.8 Total Bilirubin 0.5 AST 33 ALT 29 Alkaline Phosphatase 112 Total Protein 7.1 Albumin 3.5 Globulin 3.6 Albumin/Globulin Ratio 1.0 Intake & Output: Intake & Output 10/11/16 10/12/16 10/12/16 18:59 06:59 18:59 Intake Total 480 Output Total 400 730 920 Balance -400 -250 -920 Intake: Oral 480 Output: Drainage 30 Penile KASIA 30 Urine 400 700 920 Urethral (Sanchez) 400 700 920 Vital Signs: Vital Signs - 24 hr 10/11/16 10/12/16 10/12/16 23:00 04:20 08:23 Temperature 98 F 98.1 F 98.1 F Pulse Rate 78 66 68 Respiratory 20 20 20 Rate Blood Pressure 127/74 128/72 123/74 O2 Sat by Pulse 96 97 Oximetry 10/12/16 16:00 Temperature 98.2 F Pulse Rate 62 Respiratory 18 Rate Blood Pressure 120/61 O2 Sat by Pulse Oximetry - Physical Exam Abdominal Exam: Soft, Non-Tender, Non-Distended Wound: Clean Back: No CVA Tenderness Genitalia: Without Inflammation Urinary Catheter Draining Well: Yes Urine Color: Clear, Yellow Extremities: Normal: Bilateral - Male Phallus: Normal, Uncircumcised (drain in place, clean glans, without edema, erythema and without purulence) Scrotum: Normal - Plan Discontinue Urinary Catheter: Yes (discontinue drain) Wound Care: Yes Intake & Output: Yes See Orders: Yes Additional Information: Imp: progressing well. P: Drain and catheter removed. wound care. pt eager for discharge. home today. outpt f/u. antibiotic rx. discussed w pt and son - Date & Time of Note Date: 10/12/16 Time: 17:49
[2016-10-13 17:59] VITALS: O2SAT 98
== END 2016-10-12 17:45 | disposition home or self-care (01) | DRG 675 ==
LOC: C.ER 17:45 → C.9E 18:33 → C.6T 20:40
PROVIDERS: ADMIT Urology; ATTEND Urology
PROC: 0VPS0JZ Removal of Synthetic Substitute from Penis, Open Approach (ICD-10-PCS; principal; 2016-10-10 19:00)
DX: T83.84XA Pain due to genitourinary prosthetic devices, implants and grafts, initial encounter (principal); I10 Essential (primary) hypertension

== ENCOUNTER 2016-10-17 07:16 | Inpatient (IN) | payer BC, MEDICARE ==
[2016-10-17 07:16] VITALS: BMI 28.2
--- NOTE | 2016-10-17 07:39 | C.PDOC ---
History Of Present Illness Patient is a 76 y/o M with hx of penile implant, presenting with pain. Patient has had multiple revisions secondary to wound dehiscience and pain. Urologist: Maritza Elliott Time Seen by Provider: 10/17/16 07:27 Chief Complaint (Nursing): Male Genitourinary Past Medical History Vital Signs: Last Vital Signs Temp 98 F 10/17/16 07:26 Pulse 70 10/17/16 07:26 Resp 16 10/17/16 07:26 BP 109/75 10/17/16 07:26 Pulse Ox 98 10/17/16 07:39 - Medical History PMH: HTN Denies: Chronic Kidney Disease Surgical History: Tonsillectomy - [facility] Procedures INS INFLATE PENIS PROSTH (11/19/12) REMOVAL OF SYNTHETIC SUBSTITUTE FROM PENIS, OPEN APPROACH (10/10/16) Family History: States: Unknown Family Hx - Social History Hx Alcohol Use: No Hx Substance Use: No - Immunization History Hx Tetanus Toxoid Vaccination: No Hx Influenza Vaccination: Yes (2015) Hx Pneumococcal Vaccination: No Review Of Systems Constitutional: Negative for: Fever, Chills Cardiovascular: Negative for: Chest Pain, Palpitations, Orthopnea, Edema, Light Headedness Respiratory: Negative for: Cough, Shortness of Breath, SOB with Excertion, Wheezing Gastrointestinal: Negative for: Nausea, Vomiting, Abdominal Pain, Constipation Genitourinary: Negative for: Dysuria Skin: Positive for: Other (penile pain) Neurological: Negative for: Weakness, Numbness Physical Exam - Physical Exam Appears: Well, No Acute Distress Skin: Normal Color, Warm, Dry Eye(s): bilateral: Normal Inspection, PERRL, EOMI Nose: Normal Throat: Normal Neck: Normal Chest: Symmetrical Cardiovascular: Rhythm Regular Respiratory: Normal Breath Sounds Gastrointestinal/Abdominal: Normal Exam, Soft, No Tenderness, No Mass, No Distention Back: Normal Inspection Male Genital: Other (non-circumsized penis. pinpoint area of erythema to distal aspect of R side of penis, visible after retraction of foreskin by patient) Extremity: Normal ROM Neurological/Psych: Oriented x3 ED Course And Treatment - Laboratory Results Result Diagrams: 10/17/16 07:53 10/17/16 07:53 O2 Sat by Pulse Oximetry: 98 Medical Decision Making Medical Decision Making: Spoke to Dr. Maritza Elliott who is to take patient to OR Disposition - Disposition Disposition: HOSPITALIZED Disposition Time: 07:38 Condition: FAIR - Clinical Impression Clinical Impression: Complication of implanted penile prosthesis
[2016-10-17 07:56] LABS: BASO # 0.1 K/uL (0.0-0.2); BASO % 0.5 % (0.0-2.0); EOS # 0.1 K/uL (0.0-0.7); EOS % 0.9 % (0.0-4.0); HEMOGLOBIN 13.2 g/dL (12.0-18.0); LYMPH # 1.5 K/uL (1.0-4.3); LYMPH % 11.6 % (20.0-40.0); MEAN CELL VOLUME 84.3 fL (80.0-94.0); MEAN CORPUSCULAR HGB CONC 33.2 g/dL (33.0-37.0); MEAN PLATELET VOLUME 7.7 fL (7.2-11.7); MONO % 7.4 % (0.0-10.0); NEUT # 10.3 K/uL (1.8-7.0); NEUT % 79.6 % (50.0-75.0); RBC 4.73 Mil/uL (4.40-5.90); RED CELL DISTRIBUTION WIDTH 15.1 % (11.5-14.5); WHITE BLOOD COUNT 12.9 K/uL (4.8-10.8)
[2016-10-17 08:17] LABS: GFR AFRICAN-AMERICAN > 60; GFR NON-AFRICAN AMERICAN > 60
[2016-10-17 08:18] LABS: ALB/GLOB RATIO 1.1 (1.0-2.1); ALT/SGPT 28 U/L (21-72); AST/SGOT 23 U/L (17-59); BLOOD UREA NITROGEN 20 mg/dL (9-20); CALCIUM 9.5 mg/dl (8.6-10.4)
[2016-10-17] MEDS ORDERED: Bacitracin Ointment 30 GM TUBE ONE (09:11)
[2016-10-17] MEDS ORDERED: cefTRIAXone IV 1 gm in Dextros 50 ML IVPB ONE (09:11)
[2016-10-17] MEDS ORDERED: Bacitracin 50,000 UNIT in Sodium Chloride 0.9% Irrig 1,000 ML IR SCH (09:13)
[2016-10-17] MEDS ORDERED: Lactated Ringer's 1,000 ML IV ONE (09:15)
[2016-10-17] MEDS ORDERED: Propofol 10 mg/ml Inj (20 ML) ONE (09:18)
[2016-10-17] MEDS ORDERED: Oxycodone/Acetaminophen 5/325 mg Tab PO PRN (10:06)
--- NOTE | 2016-10-17 10:06 | PCM.SURG1 ---
Surgeon's Initial Post Op Note - Surgeon's Notes Surgeon: Mendez MENDOZA Boat Painter: NONE Pre-Operative Diagnosis: IMPENDING EROSION OF PENILE PROSTHESIS Operative Findings: SAME Post-Operative Diagnosis: SAME Operation Performed: REMOVAL OF PENILE PROSTHESIS Specimen/Specimens Removed: PENILE PROSTHESIS. URINE. WOUND SWAB FOR CULTURE Estimated Blood Loss: EBL {In ML}: 3 Blood Products Given: N/A Drains Used: Wilson Hernandez Post-Op Condition: Good Date of Surgery/Procedure: 10/17/16 Time of Surgery/Procedure: 10:00
[2016-10-17] MEDS: HYDROmorphone 0.5 mg/0.5 ml ISec IVP PRN ×2 (10:10→10:40)
[2016-10-17] MEDS ORDERED: Gentamicin 80 mg in 0.9% NS 80 MG/100 ML BAG IVPB ONE (11:00)
--- NOTE | 2016-10-17 12:09 | CP.PCM.CON ---
History of Present Illness - History of Present Illness History of Present Illness: Patient is a 76 y/o M with hx of penile implant, presenting with pain. Patient has had multiple revisions secondary to wound dehiscience and pain. went to OR prosthesis removed cultures pending - Medical History PMH: HTN Denies: Chronic Kidney Disease Surgical History: Tonsillectomy - [facility] Procedures INS INFLATE PENIS PROSTH (11/19/12) REMOVAL OF SYNTHETIC SUBSTITUTE FROM PENIS, OPEN APPROACH (10/10/16) Review of Systems - Review of Systems All systems: reviewed and no additional remarkable complaints except - Constitutional Constitutional: As Per HPI - EENT Eyes: absent: As Per HPI, Blind Spots, Blurred Vision, Change in Vision, Decreased Night Vision, Diplopia, Discharge, Dry Eye, Exophthalmos, Floaters, Irritation, Itchy Eyes, Loss of Peripheral Vision, Pain, Photophobia, Requires Corrective Lenses, Sees Flashes, Spots in Vision, Tunnel Vision, Other Visual Disturbances, Loss of Vision, Other Ears: absent: As Per HPI, Decreased Hearing, Ear Discharge, Ear Pain, Tinnitus, Abnormal Hearing, Disequilibrium, Dizziness, Other Nose/Mouth/Throat: absent: As Per HPI, Epistaxis, Nasal Congestion, Nasal Discharge, Nasal Obstruction, Nasal Trauma, Nose Pain, Post Nasal Drip, Sinus Pain, Sinus Pressure, Bleeding Gums, Change in Voice, Dental Pain, Dry Mouth, Dysphagia, Halitosis, Hoarsness, Lip Swelling, Mouth Lesions, Mouth Pain, Odynophagia, Sore Throat, Throat Swelling, Tongue Swelling, Facial Pain, Neck Pain, Neck Mass, Other - Cardiovascular Cardiovascular: absent: As Per HPI, Acrocyanosis, Chest Pain, Chest Pain at Rest , Chest Pain with Activity, Claudication, Diaphoresis, Dyspnea, Dyspnea on Exertion, Edema, Irregular Heart Rhythm, Pain Radiating to Arm/Neck/Jaw, Leg Edema, Leg Ulcers, Lightheadedness, Orthopnea, Palpitations, Paroxysmal Nocturnal Dyspnea, Pedal Edema, Radiating Pain, Rapid Heart Rate, Slow Heart Rate, Syncope, Other - Respiratory Respiratory: absent: As Per HPI, Cough, Dyspnea, Hemoptysis, Dyspnea on Exertion , Wheezing, Snoring, Stridor, Pain on Inspiration, Chest Congestion, Excessive Mucous Production, Change in Mucous Color, Pain with Coughing, Other - Gastrointestinal Gastrointestinal: absent: As Per HPI, Abdominal Pain, Belching, Bloating, Change in Bowel Habits, Change in Stool Character, Coffee Ground Emesis, Constipation, Cramping, Diarrhea, Dyspepsia, Dysphagia, Early Satiety, Excessive Flatus, Fecal Incontinence, Heartburn, Hematemesis, Hematochezia, Loose Stools, Melena, Nausea, Odynophagia, Temesmus, Vomiting, Other - Genitourinary Genitourinary: As Per HPI - Musculoskeletal Musculoskeletal: absent: As Per HPI, Abnormal Gait, Arthralgias, Atrophy, Back Pain, Deformity, Joint Swelling, Limited Range of Motion, Loss of Height, Muscle Cramps, Muscle Weakness, Myalgias, Neck Pain, Numbness, Radiating Pain into Limb, Stiffness, Tingling, Other - Integumentary Integumentary: absent: As Per HPI, Acne, Alopecia, Bleeding Lesions, Change in Hair, Change in Nails, Change in Pigmentation, Changing Lesions, Dry Skin, Erythema, Furuncle, Hirsutism, Lesions, New Lesions, Non-Healing Lesions, Photosensitivity, Pruritus, Rash, Skin Pain, Skin Ulcer, Sores, Striae, Swelling , Unusual Bruising, Wounds, Jaundice, Other - Neurological Neurological: absent: As Per HPI, Abnormal Gait, Abnormal Hearing, Abnormal Movements, Abnormal Speech, Behavioral Changes, Burning Sensations, Confusion, Convulsions, Disequilibrium, Dizziness, Numbness, Focal Weakness, Frequent Falls , Headaches, Lack of Coordination, Loss of Vision, Memory Loss, Paresthesias, Radicular Pain, Restless Legs, Sensory Deficit, Syncope, Tingling, Tremor, Vertigo, Weakness, Other Visual Disturbances, Other - Psychiatric Psychiatric: absent: As Per HPI, Abnormal Sleep Pattern, Anhedonia, Anxiety, Auditory Hallucinations, Behavioral Changes, Change in Appetite, Change in Libido, Confusion, Depression, Difficulty Concentrating, Hallucinations, Homicidal Ideation, Hopelessness, Irritability, Memory Loss, Mood Swings, Panic Attacks, Paranoia, Suicidal Ideation, Visual Hallucinations, Tactile Hallucinations, Other - Endocrine Endocrine: absent: As Per HPI, Change in Body Appearance, Change in Libido, Cold Intolorance, Deepening of Voice, Excessive Sweating, Fatigue, Flushing, Heat Intolorance, Increase in Ring/Shoe/Hat Size, Palpitations, Polydipsia, Polyphagia, Polyuria, Other - Hematologic/Lymphatic Hematologic: absent: As Per HPI, Easy Bleeding, Easy Bruising, Lymphadenopathy, Other Past Patient History - Past Medical History & Family History Past Medical History?: Yes - Past Social History Smoking Status: Never Smoked - CARDIAC Hx Hypertension: Yes - PULMONARY Hx Respiratory Disorders: No - NEUROLOGICAL Hx Neurological Disorder: No - HEENT Hx HEENT Problems: No - RENAL Hx Chronic Kidney Disease: No - ENDOCRINE/METABOLIC Hx Endocrine Disorders: No - HEMATOLOGICAL/ONCOLOGICAL Hx Blood Disorders: No - INTEGUMENTARY Hx Dermatological Problems: No - MUSCULOSKELETAL/RHEUMATOLOGICAL Hx Musculoskeletal Disorders: No Hx Falls: No - GASTROINTESTINAL Hx Gastrointestinal Disorders: No - GENITOURINARY/GYNECOLOGICAL Hx Genitourinary Disorders: Yes (SEE COMMENT) Hx Hematuria: Yes Hx Prostate Problems: Yes (BPH /SLOW URINE STREAM) Other/Comment: HX: ORGANIC ERECTILE DYSFUNCTION - PSYCHIATRIC Hx Substance Use: No - SURGICAL HISTORY Hx Tonsillectomy: Yes - ANESTHESIA Hx Anesthesia: Yes Hx Anesthesia Reactions: No Hx Malignant Hyperthermia: No Meds Allergies/Adverse Reactions: Allergies Allergy/AdvReac Type Severity Reaction Status Date / Time No Known Allergies Allergy Verified 10/17/16 07:25 - Medications Medications: Current Medications Ciprofloxacin (Cipro) 500 mg PO Q12H [facility] Oxycodone/Acetaminophen (Percocet 5/325 Mg Tab) 1 tab PO Q4H PRN PRN Reason: Pain, moderate (4-7) Stop: 10/20/16 10:07 Physical Exam - Constitutional Appears: Non-toxic, Chronically Ill - Head Exam Head Exam: NORMOCEPHALIC - Eye Exam Eye Exam: PERRL. absent: Scleral icterus - ENT Exam ENT Exam: Normal External Ear Exam - Neck Exam Neck exam: Negative for: Lymphadenopathy - Respiratory Exam Respiratory Exam: Decreased Breath Sounds - Cardiovascular Exam Cardiovascular Exam: REGULAR RHYTHM - GI/Abdominal Exam GI & Abdominal Exam: Diminished Bowel Sounds, Normal Bowel Sounds, Soft. absent : Tenderness - Rectal Exam Rectal Exam: Deferred - Exam Exam: absent: NORMAL INSPECTION - Extremities Exam Extremities exam: Positive for: pedal pulses present. Negative for: calf tenderness, pedal edema, tenderness - Back Exam Back exam: absent: CVA tenderness (L), CVA tenderness (R) - Neurological Exam Neurological exam: Alert, CN II-XII Intact, Oriented x3, Reflexes Normal - Psychiatric Exam Psychiatric exam: Normal Mood - Skin Skin Exam: Dry Results - Vital Signs Recent Vital Signs: Last Vital Signs Temp 97.4 F L 10/17/16 09:57 Pulse 69 10/17/16 11:30 Resp 14 10/17/16 11:30 BP 146/79 10/17/16 11:30 Pulse Ox 97 10/17/16 11:30 - Labs Result Diagrams: 10/17/16 07:53 10/17/16 07:53 Assessment & Plan (1) Complication of implanted penile prosthesis Status: Acute (2) Penile pain Status: Acute - Assessment and Plan (Free Text) Assessment: r/o infection prosthesis removed await cultures
[2016-10-17] MEDS: Cefepime IV 1 gm in Dextrose 1 GM/50 ML BAG IVPB SCH (17:00)
[2016-10-17 18:49] VITALS: RESP 20
[2016-10-18 01:00] VITALS: TEMP 98.2
--- NOTE | 2016-10-18 02:29 | OP ---
PROCEDURE DATE: 10/17/2016 PREOPERATIVE DIAGNOSIS: Impending erosion of penile prosthesis. POSTOPERATIVE DIAGNOSIS: Impending erosion of penile prosthesis. PROCEDURE: Removal of penile prosthesis. SURGEON: Dr. Maritza Elliott. DESCRIPTION OF PROCEDURE: The patient was in the supine position. The genitalia was prepped and draped in the sterile fashion. The patient received perioperative antibiotics. The anesthesia was provided by the anesthesiologist. Genitalia was prepped and draped sterilely. The penile prosthesis was noted to be palpable just below the skin on the right side of the glans with impending erosion. An incision was made in the glans over the prosthesis. The prosthesis was then delivered. There was no purulence. There was no drainage. A swab of the corpora was obtained and sent back for urologic examination. The corpora was copiously irrigated. A Sanchez catheter was inserted per urethra. Bladder drainage was clear. Urine was sent back for urologic examination. A 7[place] flat Wilson-Hernandez drain was inserted into the corpora. The drain was left in place. The corpora was irrigated with antibiotic solution. A sterile dressing was applied. The patient tolerated the procedure without complication. Maritza Elliott MD cc: Maritza Elliott MD
[2016-10-18] MEDS: Cefepime IV 1 gm in Dextrose 1 GM/50 ML BAG IVPB SCH (04:46)
--- NOTE | 2016-10-18 09:13 | PCM.URO ---
Urology Progress Note - General General: No Complaints, Tolerating Diet - Subjective Abdominal Pain: No Flank Pain: No Nausea: No Vomiting: No Hematuria: No Dsypnea: No Chest Pain: No Fever & Chills: No - Objective Intake & Output: Intake & Output 10/17/16 10/18/16 10/18/16 18:59 06:59 18:59 Intake Total 400 890 Output Total 700 1790 Balance -300 -900 Intake: IV 400 Intake, IV Amount 350 Left Antecubital 350 Oral 540 Output: Drainage 40 Penile KASIA 40 Urine 700 1750 Urethral (Sanchez) 1750 Other: Voiding Method Indwelling Catheter # Bowel Movements 0 Vital Signs: Vital Signs - 24 hr 10/17/16 10/17/16 10/17/16 10:45 11:00 11:30 Temperature Pulse Rate 65 65 69 Respiratory 10 L 12 14 Rate Blood Pressure 147/79 144/78 146/79 O2 Sat by Pulse 100 100 97 Oximetry 10/17/16 10/17/16 10/17/16 12:00 12:30 13:00 Temperature Pulse Rate 68 69 72 Respiratory 16 13 16 Rate Blood Pressure 138/72 153/77 H 127/57 L O2 Sat by Pulse 95 96 96 Oximetry 10/17/16 10/17/16 10/17/16 15:00 17:00 18:00 Temperature 99 F Pulse Rate 79 62 77 Respiratory 20 14 17 Rate Blood Pressure 121/59 L 135/70 148/79 O2 Sat by Pulse 96 96 97 Oximetry 10/17/16 10/18/16 18:49 00:00 Temperature 98.5 F 98.2 F Pulse Rate 90 63 Respiratory 20 20 Rate Blood Pressure 127/68 125/67 O2 Sat by Pulse 97 98 Oximetry - Physical Exam Abdominal Exam: Soft, Non-Tender, Non-Distended Wound: Clean, Healing Well Back: No CVA Tenderness Genitalia: Without Inflammation Urinary Catheter Draining Well: Yes Urine Color: Clear, Yellow Extremities: Normal: Bilateral - Male Phallus: Uncircumcised Scrotum: Normal Testes: Normal: Bilateral - Plan Wound Care: Yes Ambulation - Out of Bed: Yes See Orders: Yes Additional Information: PENILE WOUND IS CLEAN. NO PURUULENCE. NO CELLULITIS. p: DRAIN IRRIGATED. DRAIN REMOVED. CATHETER REMOVED. DISCUSSED W PT AND FAMILY - Date & Time of Note Date: 10/18/16 Time: 09:14
[2016-10-18] MEDS ORDERED: Pneumococcal 23-Valent Vaccine IM ONE (10:00)
[2016-10-18 10:38] VITALS: BP 123/69; PULSE 74; O2SAT 95
--- NOTE | 2016-10-18 12:24 | CP.PCM.PN ---
Subjective - Date & Time of Evaluation Date of Evaluation: 10/18/16 Time of Evaluation: 12:24 - Subjective Subjective: PT SEEN BY DR. MENDOZA THIS MORNING AND CLEARED FOR D/C HOME. RX SENT TO PT'S PHARMACY FOR CIPRO PER DR. TERRY'S RECOMMENDATIONS (7 DAY SUPPLY). PT IS TO SEE DR. MENDOZA IN THE OFFICE ON MONDAY. NO FURTHER ORDERS. Objective - Vital Signs/Intake and Output Vital Signs (last 24 hours): Temp Pulse Resp BP Pulse Ox 98.2 F 74 20 123/69 95 10/18/16 09:28 10/18/16 09:28 10/18/16 09:28 10/18/16 09:28 10/18/16 09:28 Intake and Output: 10/18/16 10/18/16 06:59 18:59 Intake Total 890 Output Total 1790 Balance -900 - Medications Medications: Current Medications Ciprofloxacin (Cipro) 500 mg PO Q12H [facility] Last Admin: 10/18/16 10:05 Dose: 500 mg Cefepime HCl (Maxipime Iv 1 Gm Premix) 1 gm in 50 mls @ 100 mls/hr IVPB Q12H [facility] Last Admin: 10/18/16 04:46 Dose: 100 mls/hr Oxycodone/Acetaminophen (Percocet 5/325 Mg Tab) 1 tab PO Q4H PRN PRN Reason: Pain, moderate (4-7) Stop: 10/20/16 10:07
--- NOTE | 2016-10-18 12:35 | CP.PCM.PN ---
Subjective - Date & Time of Evaluation Date of Evaluation: 10/18/16 Time of Evaluation: 09:00 - Subjective Subjective: improved afebrile nad Objective - Vital Signs/Intake and Output Vital Signs (last 24 hours): Temp Pulse Resp BP Pulse Ox 98.2 F 74 20 123/69 95 10/18/16 09:28 10/18/16 09:28 10/18/16 09:28 10/18/16 09:28 10/18/16 09:28 Intake and Output: 10/18/16 10/18/16 06:59 18:59 Intake Total 890 Output Total 1790 Balance -900 - Medications Medications: Current Medications Ciprofloxacin (Cipro) 500 mg PO Q12H [facility] Last Admin: 10/18/16 10:05 Dose: 500 mg Cefepime HCl (Maxipime Iv 1 Gm Premix) 1 gm in 50 mls @ 100 mls/hr IVPB Q12H [facility] Last Admin: 10/18/16 04:46 Dose: 100 mls/hr Oxycodone/Acetaminophen (Percocet 5/325 Mg Tab) 1 tab PO Q4H PRN PRN Reason: Pain, moderate (4-7) Stop: 10/20/16 10:07 - Constitutional Appears: Non-toxic, Chronically Ill - Head Exam Head Exam: NORMOCEPHALIC - Eye Exam Eye Exam: PERRL. absent: Scleral icterus - ENT Exam ENT Exam: Mucous Membranes Dry, Normal External Ear Exam - Neck Exam Neck Exam: absent: Lymphadenopathy - Respiratory Exam Respiratory Exam: Decreased Breath Sounds, Clear to Ausculation Bilateral - Cardiovascular Exam Cardiovascular Exam: REGULAR RHYTHM - GI/Abdominal Exam GI & Abdominal Exam: Distended, Soft. absent: Tenderness - Rectal Exam Rectal Exam: Deferred - Exam Exam: absent: NORMAL INSPECTION - Extremities Exam Extremities Exam: absent: Pedal Edema - Back Exam Back Exam: absent: CVA tenderness (L), CVA tenderness (R) - Neurological Exam Neurological Exam: Alert, Awake, Normal Gait, Oriented x3 Assessment and Plan (1) Complication of implanted penile prosthesis Status: Acute (2) Penile pain Status: Acute - Assessment and Plan (Free Text) Assessment: cont antibiotics po then iv await or cultures
== END 2016-10-18 14:15 | disposition home or self-care (01) | DRG 675 ==
LOC: C.ER 07:16 → C.SDS 08:34 → C.9S 10:32 → C.3T 18:47
PROVIDERS: ADMIT Urology; ATTEND Urology
PROC: 0VPS0JZ Removal of Synthetic Substitute from Penis, Open Approach (ICD-10-PCS; principal; 2016-10-17 12:15)
DX: T83.61XA Infection and inflammatory reaction due to implanted penile prosthesis, initial encounter (principal); T83.84XA Pain due to genitourinary prosthetic devices, implants and grafts, initial encounter; B96.5 Pseudomonas (aeruginosa) (mallei) (pseudomallei) as the cause of diseases classified elsewhere; T83.719A Erosion of other prosthetic materials to surrounding organ or tissue, initial encounter; I10 Essential (primary) hypertension; N40.0 Benign prostatic hyperplasia without lower urinary tract symptoms; N52.8 Other male erectile dysfunction